=== PATIENT | female | born 1955 | race Caucasian/White ===

== ENCOUNTER 2019-05-17 05:40 | Day surgery (SDC) | payer OTHER ==
[~2019-05-17 05:40] MED LIST: ALLEGRA ALLERGY60 MG PO; DIOVAN160 M1 PO; PROGESTERON PO
== END 2019-05-17 13:30 | disposition home or self-care (01) ==
LOC: CIR.AMB 05:40
DX: H72.02 Central perforation of tympanic membrane, left ear (principal); H71.92 Unspecified cholesteatoma, left ear; H66.92 Otitis media, unspecified, left ear

== ENCOUNTER 2019-09-21 15:02 | Inpatient (IN) | payer OTHER ==
[~2019-09-21] VITALS: Ht 170.2 cm; Wt 70.3 kg
[2019-10-02] MEDS ORDERED: POLY119PG PO (15:20)
[2019-10-02] MEDS ORDERED: ULTRACET PO (15:21)
== END 2019-10-02 17:33 | disposition home or self-care (01) | DRG 418 ==
LOC: ER 15:02 → MEDJ 21:00
PROVIDERS: Surgery; ADMIT Internal Medicine
PROC: 0FJB8ZZ Inspection of Hepatobiliary Duct, Via Natural or Artificial Opening Endoscopic (ICD-10-PCS; 2019-09-21)
PROC: BF14YZZ Fluoroscopy of Gallbladder, Bile Ducts and Pancreatic Ducts using Other Contrast (ICD-10-PCS; 2019-09-21)
PROC: 0FC98ZZ Extirpation of Matter from Common Bile Duct, Via Natural or Artificial Opening Endoscopic (ICD-10-PCS; 2019-09-27)
PROC: 0DB98ZX Excision of Duodenum, Via Natural or Artificial Opening Endoscopic, Diagnostic (ICD-10-PCS; 2019-09-27)
PROC: BW40ZZZ Ultrasonography of Abdomen (ICD-10-PCS; 2019-09-27)
PROC: 0FT44ZZ Resection of Gallbladder, Percutaneous Endoscopic Approach (ICD-10-PCS; principal; 2019-09-29 14:45)
DX: K80.46 Calculus of bile duct with acute and chronic cholecystitis without obstruction (principal); R17 Unspecified jaundice; I10 Essential (primary) hypertension; E86.0 Dehydration

== ENCOUNTER 2020-04-29 09:10 | Day surgery (SDC) | payer OTHER ==
[~2020-04-29 09:10] MED LIST changes: +ALLEGRA ALLERG180 MG PO; +PANADOL PO; +POLY119PG PO; +ULTRACET PO
[2020-04-29] MEDS ORDERED: IBU600 MG PO (13:13)
== END 2020-04-29 17:57 | disposition home or self-care (01) ==
LOC: CIR.AMB 09:10
PROVIDERS: ATTEND Obstetrics & Gynecology Gynecology
DX: N84.0 Polyp of corpus uteri (principal); Z20.828 Contact with and (suspected) exposure to other viral communicable diseases